=== PATIENT | female | born 1975 | race Caucasian/White ===

== ENCOUNTER 2017-09-24 16:11 | Inpatient (IN) | payer OTHER ==
[~2017-09-24] VITALS: Ht 160 cm; Wt 5.0 kg
[2017-09-27] MEDS ORDERED: CEFDINIR300 MG PO (16:16)
[2017-09-27] MEDS ORDERED: ZITHROMAX200 MG PO (16:16)
[2017-09-27] MEDS ORDERED: PROTONIX40 MG PO (16:17)
== END 2017-09-27 17:24 | DRG 690 ==
LOC: ER 16:11 → MEDI 23:04
PROC: BW41ZZZ Ultrasonography of Abdomen and Pelvis (ICD-10-PCS; 2017-09-24)
PROC: 3E0F7GC Introduction of Other Therapeutic Substance into Respiratory Tract, Via Natural or Artificial Opening (ICD-10-PCS; principal; 2017-09-25)
PROC: BB24ZZZ Computerized Tomography (CT Scan) of Bilateral Lungs (ICD-10-PCS; 2017-09-25)
DX: N39.0 Urinary tract infection, site not specified (principal); D72.823 Leukemoid reaction; R05 Cough

== ENCOUNTER 2021-06-23 03:22 | Emergency (ER) | payer OTHER ==
[~2021-06-23] VITALS: Ht 160 cm; Wt 65.8 kg
[~2021-06-23 03:22] MED LIST: CEFDINIR300 MG PO; PROTONIX40 MG PO; ZITHROMAX200 MG PO
== END 2021-06-23 11:42 | disposition home or self-care (01) ==
LOC: ER 03:22
DX: K21.9 Gastro-esophageal reflux disease without esophagitis (principal)

== ENCOUNTER 2025-01-13 14:40 | Emergency (ER) | payer OTHER ==
[~2025-01-13] VITALS: Ht 165.1 cm; Wt 68.0 kg
[2025-01-13] MEDS ORDERED: ZOFRAN8 MG PO (17:06)
[2025-01-13] MEDS ORDERED: MECLIZINE HCL25 MG PO (17:06)
[2025-01-13] MEDS ORDERED: MECLIZINE HCL 25 MG TABLET PO ONE (18:45)
[2025-01-13] MEDS ORDERED: ONDANSETRON HCL 2 MG/ML VIAL IV ONE (18:45)
== END 2025-01-13 19:13 | disposition home or self-care (01) ==
LOC: ER 14:40
DX: H81.10 Benign paroxysmal vertigo, unspecified ear (principal); Z91.041 Radiographic dye allergy status